=== PATIENT | male | born 1980 | race Caucasian/White ===

== ENCOUNTER → 2019-10-15 | Outpatient (CLI) | payer OTHER ==
--- NOTE | 2019-10-16 14:42 | RADIOLOGY REPORT (SQ) ---
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 RADIONUCLIDE AND DOSE: 10.82 mCi F18 FDG The route of agent administration: Intravenous FASTING BLOOD SUGAR: 81 mg/dl CONTRAST TYPE AND DOSE: No CT contrast given. TECHNIQUE: Blood glucose level was verified. Above dose of FDG was injected intravenously. 2-D seg mented attenuation correction images were obtained from the base of the skull to the midthighs. Nonc ontrast CT images were obtained for attenuation correction and fusion with emission images. CT image s were performed without oral or intravenous contrast and are not sensitive for parenchymal lesions. A series of overlapping emission PET images were obtained. Images reviewed and manipulated at [facility] work station by the radiologist. Images stored on PACS. LIMITATIONS: None. FINDINGS: HEAD AND NECK: Hypermetabolic right supraclavicular nodes, poorly delineated on noncontras t CT of measuring approximately 11 mm in short axis (series 3, image 51) (max SUV 14.5). No other ar eas of abnormal uptake within the head or neck. CHEST: Extensive confluent mediastinal and bilateral hilar adenopathy with avid FDG uptake. For sylvester hooper the largest subcarinal conglomerate measures approximately 7.2 x 2.9 cm (max SUV 31). There is a small focus of soft tissue density along the left posterior pleura measuring 1 cm (series 3, image 114) demonstrating increased FDG uptake (max SUV 4.4). ABDOMEN AND PELVIS: There is hypermetabolic para-aortic adenopathy at the level of the diaphragmatic hiatus (max SUV 16.7) measuring 17 mm in short axis (series 3, image 108). Background hepatic activi ty max SUV 4.4. No other discrete foci of increased FDG uptake within the abdomen or pelvis. No are as of abnormal metabolic activity in the abdomen or pelvis. Expected physiologic activity is present in the genitourinary system and bowel. PROXIMAL LOWER EXTREMITIES: No areas of abnormal metabolic activity in the soft tissues of the lower extremities. BONES: No abnormal metabolic activity in the visualized skeleton. ADDITIONAL CT FINDINGS: No acute findings. IMPRESSION: 1. Hypermetabolic right supraclavicular, mediastinal and hilar adenopathy compatible wi th history of lymphoma. 2. Additional focus of pleural-based increased activity along the left lower lobe measuring 1 cm (ma x SUV 4.4), likely additional disease. 3. Para-aortic adenopathy (max SUV 16.7) at the level of the diaphragmatic hiatus also compatible wi th additional disease. TECHNICAL DOCUMENTATION: JOB ID: [id number] [employer]- All Rights Reserved Reading location - IP/workstation name: [email or web address]
== END ==
LOC: RAD 14:40
PROVIDERS: ATTEND Internal Medicine
DX: R59.0 Localized enlarged lymph nodes (principal)
CPT/HCPCS: 78815; A9552